=== PATIENT | female | born 1950 | race American Indian/Alaskan Native ===

== ENCOUNTER 2017-09-25 22:44 | Emergency (ER) | payer MEDICARE ==
--- NOTE | 2017-09-26 00:27 | XRay Report ---
FINAL REPORT EXAM: XR TOE(S) 2+V LT HISTORY: fell and hurt left great toe TECHNIQUE: Three views of the left great toe were obtained. FINDINGS: There is osteoporosis. There is no evidence of acute fracture involving the great toe. There is marginal spurring along the distal end of the 1st metatarsal. IMPRESSION: No evidence acute fracture involving the left great toe. Marginal spurring along the distal end of the 1st metatarsal.
--- NOTE | 2017-09-26 00:28 | XRay Report ---
FINAL REPORT EXAM: XR KNEE 1-2V LT HISTORY: s/p fall swollen and painful left knee TECHNIQUE: AP and lateral views of the left knee were submitted. FINDINGS: There is severe narrowing of the medial compartment with marginal spurring. There is moderate narrowing of the patellofemoral compartment with spurring superiorly. There is mild narrowing of the medial compartment. Joint fluid is not seen. There is no evidence of fracture. IMPRESSION: Tricompartmental arthritic changes. No evidence of fracture or joint effusion.
--- NOTE | 2017-09-26 03:15 | Emergency Department Report ---
ED Extremity Problem HPI - General Chief complaint: Extremity Problem,Nontraumatic Stated complaint: FALL Time Seen by Provider: 09/26/17 03:14 Source: patient Mode of arrival: Ambulatory Limitations: No Limitations - History of Present Illness Initial comments: Patient reports that she fell at work on Friday for 04/04/2018 after slipping on water. She says she hurt her left knee and her left great toe. Pain to left knee 7 out of 10 and aching pain to left great toe is 8 out of 10 and aching. Pain is worse with movement and better rest. She says she took Tylenol which helped with pain. Denies that she is here to get checked to make sure that she doesn't have anything broken. Denies any medical problem. She denies any known history of arthritis. Denies any numbness or tendons or extremities. Patient is ambulatory and drove herself to the hospital. MD Complaint: joint swelling, joint paint, other (left great toe pain) Onset/Timin -: days(s) Location: left, knee, toe (left great toe) History of Same: No -: No myalgia, Yes arthralgia, No fever, No associated dyspnea, No associated chest pain Radiation: none Severity scale (0 -10): 8 Quality: aching Consistency: constant Improves with: medication Worsens with: weight bearing, walking, exertion, palpation Associated Symptoms: arthralgias. denies: chest pain, shortness of breath, fever, myalgias, rash - Related Data Previous Rx's Medication Instructions Recorded Last Taken Type Ibuprofen [Motrin] 600 mg PO Q8H PRN #12 tablet 09/26/17 Unknown Rx Allergies Allergy/AdvReac Type Severity Reaction Status Date / Time No Known Allergies Allergy Unverified 09/25/17 23:35 ED Review of Systems ROS: Stated complaint: FALL Other details as noted in HPI Comment: All other systems reviewed and negative Constitutional: no symptoms reported Respiratory: no symptoms reported Cardiovascular: denies: chest pain, palpitations, dyspnea on exertion, edema, syncope, paroxysmal nocturnal dyspnea Gastrointestinal: denies: abdominal pain, nausea, vomiting, diarrhea Musculoskeletal: joint swelling, arthralgia. denies: back pain, myalgia Skin: denies: rash Neurological: denies: headache, numbness, paresthesias, confusion, abnormal gait , vertigo ED Past Medical Hx - Past Medical History Previous Medical History?: No - Surgical History Past Surgical History?: Yes Hx Cholecystectomy: Yes Additional Surgical History: C Sec X1 - Family History Family history: no significant - Social History Smoking Status: Former Smoker Substance Use Type: None - Medications Home Medications: Home Medications Medication Instructions Recorded Confirmed Last Taken Type Ibuprofen [Motrin] 600 mg PO Q8H PRN #12 tablet 09/26/17 Unknown Rx ED Physical Exam - General Limitations: No Limitations General appearance: alert, in no apparent distress - Head Head exam: Present: atraumatic, normocephalic, normal inspection, other (normal exam) - Eye Eye exam: Present: normal appearance, PERRL, EOMI Pupils: Present: normal accommodation - ENT ENT exam: Present: normal exam, normal orophraynx, mucous membranes moist - Neck Neck exam: Present: normal inspection, full ROM, other (no C-spine tenderness). Absent: tenderness - Respiratory Respiratory exam: Present: normal lung sounds bilaterally. Absent: respiratory distress, chest wall tenderness - Cardiovascular Cardiovascular Exam: Present: regular rate, normal rhythm, normal heart sounds - GI/Abdominal GI/Abdominal exam: Present: soft, normal bowel sounds. Absent: distended, tenderness, guarding, rebound, rigid - Extremities Exam Extremities exam: Present: normal inspection, full ROM (she reports pain with flexing and extending her knee but she has full range of motion.), tenderness ( tender to palpate left great toe and left knee.), normal capillary refill, joint swelling (mild swelling to left knee), other (ambulates without any difficulties.). Absent: pedal edema, calf tenderness - Expanded Lower Extremity Exam Left Hip exam: Present: normal inspection, full ROM, pelvic stability. Absent: tenderness, swelling, abrasion, laceration, ecchymosis, deformity, crepidus, dislocation, erythema, external rotation, internal rotation, shortening Upper Leg exam: Present: normal inspection, full ROM. Absent: tenderness, swelling, abrasion, laceration, ecchymosis, deformity, crepidus, dislocation, erythema Knee exam: Present: full ROM (full range of motion to both knees but patient reports pain with flexing and extending her left knee.), tenderness (anterior knee), swelling (mild swelling anterior knee), crepidus, full knee extension. Absent: normal inspection, abrasion, laceration, ecchymosis, deformity, dislocation, erythema, effusion, pain w/ pronation/supination, posterior draw sign, pain/laxity with valgus, pain/laxity with varus Lower Leg exam: Present: normal inspection, full ROM. Absent: tenderness, swelling, abrasion, laceration, ecchymosis, deformity, crepidus, dislocation, erythema, palpable cord, Stephanie's sign Ankle exam: Present: normal inspection, full ROM. Absent: tenderness, swelling , abrasion, laceration, ecchymosis, deformity, crepidus, dislocation, erythema Foot/Toe exam: Present: full ROM, tenderness (minimal tenderness to left great toe with mild swelling), swelling (left great toe). Absent: normal inspection, abrasion, laceration, ecchymosis, deformity, crepidus, dislocation, erythema, amputation, puncture wound, foreign body, calcaneal tenderness, tenderness at base of 5th metatarsal, nail avulsion, subungual hematoma Neuro vascular tendon exam: Present: no vascular compromise. Absent: pulse deficit, abnormal cap refill, motor deficit, sensory deficit, tendon deficit, extremity cold to touch, pallor, abnormal 2-point discrimination, decreased fine /light touch, foot drop, peroneal nerve deficit, significant pain with passive ROM of distal joint Gait: Positive: observed and limited by pain - Back Exam Back exam: Present: normal inspection, full ROM. Absent: tenderness, CVA tenderness (R), CVA tenderness (L), muscle spasm, paraspinal tenderness, vertebral tenderness, rash noted - Neurological Exam Neurological exam: Present: alert, oriented X3, normal gait, reflexes normal. Absent: motor sensory deficit - Psychiatric Psychiatric exam: Present: normal affect, normal mood - Skin Skin exam: Present: warm, dry, intact, normal color. Absent: rash ED Course Vital Signs 09/25/17 23:40 Temperature 99 F Pulse Rate 74 Respiratory 18 Rate Blood Pressure 168/92 [Left] O2 Sat by Pulse 97 Oximetry - Reevaluation(s) Reevaluation #1: 09/26/17 04:21 She is stable throughout ED stay and did not want any pain medication - Orthopedic Splinting/Casting Injury #1 Side: left Lower Extremity Injury Location: knee Lower Extremity Immobilizer: Alvaro wrap ED Medical Decision Making - Radiology Data Radiology results: report reviewed X-ray of left knee reveals tricompartmental arthritic changes. No evidence of fracture or joint effusion. X-ray of left great toe reveal osteoporosis. No evidence of fracture involving the left great toe. Marginal spurring along the distal end of the first metatarsal. - Medical Decision Making ED course: Patient reports fall 2 days ago while at work. She accidentally slipped on wet floor. She reported that she hit her left knee and injured her left great toe. Physical findings are mild swelling to left knee with minimal pain with active range of motion and minimal swelling to left great toe but full range of motion. X-ray findings no acute fracture or dislocation to left great toe or left knee. Please refer to radiology section for details on x-ray report. Patient did not want any pain medication in emergency room. See procedure note for splinting of the left knee. Patient discharged home to follow up with orthopedic doctor and 3 days. Given prescription for Motrin to take as needed for pain. Critical care attestation.: If time is entered above; I have spent that time in minutes in the direct care of this critically ill patient, excluding procedure time. ED Disposition Clinical Impression: Tricompartment osteoarthritis of left knee, Bone spur of toe of left foot, Arthralgia of multiple sites Accidental fall Qualifiers: Encounter type: initial encounter Qualified Code(s): W19.XXXA - Unspecified fall, initial encounter Left knee injury Qualifiers: Encounter type: initial encounter Qualified Code(s): S89.92XA - Unspecified injury of left lower leg, initial encounter Contusion of left knee Qualifiers: Encounter type: initial encounter Qualified Code(s): S80.02XA - Contusion of left knee, initial encounter Disposition: DC- TO HOME OR SELFCARE Is pt being admited?: No Does the pt Need Aspirin: No Condition: Stable Instructions: Knee Pain (ED), Knee Exercises (GEN), Arthralgia (ED), Osteoarthritis (ED), Contusion in Adults (ED), RICE Therapy (ED), Fall Prevention for Older Adults (ED) Additional Instructions: Please take Motrin as prescribed and this will help with knee and toe pain Rest for 3 days See discharge instruction on a rice therapy Follow-up with orthopedic doctor in 3 days Prescriptions: Ibuprofen [Motrin] 600 mg PO Q8H PRN #12 tablet PRN Reason: Pain Referrals: PRIMARY CARE, [Primary Care Provider] - 3-5 Days Forms: Work/School Release Form(ED)
[2017-09-26 04:42] VITALS: BP 158/90
== END 2017-09-26 04:42 | disposition home or self-care (01) ==
LOC: ED 22:44
DX: S80.02XA Contusion of left knee, initial encounter (principal); M17.12 Unilateral primary osteoarthritis, left knee; M77.9 Enthesopathy, unspecified; M25.50 Pain in unspecified joint; W18.30XA Fall on same level, unspecified, initial encounter; Y93.89 Activity, other specified; Y92.89 Other specified places as the place of occurrence of the external cause; Y99.8 Other external cause status

== ENCOUNTER 2019-07-12 19:05 | Emergency (ER) | payer MEDICARE ==
[2019-07-12 20:17] VITALS: BP 145/76
--- NOTE | 2019-07-12 20:35 | Emergency Department Report ---
ED Neck Pain/Injury HPI - General Chief Complaint: Neck Pain/Injury Stated Complaint: CAN NOT TURN HEAD Time Seen by Provider: 07/12/19 20:31 Mode of arrival: Ambulatory Limitations: No Limitations - History of Present Illness Initial Comments: This is a 69-year-old female nontoxic, well nourished in appearance, no acute signs of distress presents to the ED with c/o of upper back pain. Patient stated that the past 2 days she was moving and developed this pain. Patient denies any trauma. Denies any bladder or bowel instability. Patient denies any urinary symptoms. Denies any fever, chills, nausea, vomiting, headache, stiff neck, chest pain or shortness of breath. Patient denies any numbness or tingling. Denies any allergies. MD Complaint: upper back pain -: days(s) Severity: mild Severity scale (0 -10): 3 Quality: aching Consistency: intermittent Improves With: immobilization Worsens With: movement of extremity, movement of neck Associated Symptoms: none. denies: headache, fever, numbness, tingling, weakness, vertigo, difficulty walking, swollen glands, difficulty swallowing, nausea, vomiting Treatments Prior to Arrival: none - Related Data Previous Rx's Medication Instructions Recorded Last Taken Type Ibuprofen [Motrin] 600 mg PO Q8H PRN #12 tablet 09/26/17 Unknown Rx Cyclobenzaprine HCl [Flexeril 5 MG 5 mg PO QHS PRN #10 tab 07/12/19 Unknown Rx TAB] Naproxen 500 mg PO Q12H PRN #20 tablet 07/12/19 Unknown Rx Allergies Allergy/AdvReac Type Severity Reaction Status Date / Time No Known Allergies Allergy Verified 07/12/19 19:17 ED Review of Systems ROS: Stated complaint: CAN NOT TURN HEAD Other details as noted in HPI Constitutional: denies: chills, fever Eyes: denies: eye pain, eye discharge, vision change ENT: denies: ear pain, throat pain Respiratory: denies: cough, shortness of breath, wheezing Cardiovascular: denies: chest pain, palpitations Endocrine: no symptoms reported Gastrointestinal: denies: abdominal pain, nausea, diarrhea Genitourinary: denies: urgency, dysuria, discharge Musculoskeletal: denies: back pain, joint swelling, arthralgia Skin: denies: rash, lesions Neurological: denies: headache, weakness, paresthesias Psychiatric: denies: anxiety, depression Hematological/Lymphatic: denies: easy bleeding, easy bruising ED Past Medical Hx - Surgical History Hx Cholecystectomy: Yes Additional Surgical History: C Sec X1 - Social History Smoking Status: Former Smoker Substance Use Type: None - Medications Home Medications: Home Medications Medication Instructions Recorded Confirmed Last Taken Type Ibuprofen [Motrin] 600 mg PO Q8H PRN #12 tablet 09/26/17 Unknown Rx Cyclobenzaprine HCl [Flexeril 5 MG 5 mg PO QHS PRN #10 tab 07/12/19 Unknown Rx TAB] Naproxen 500 mg PO Q12H PRN #20 tablet 07/12/19 Unknown Rx ED Physical Exam - General Limitations: No Limitations General appearance: alert, in no apparent distress - Head Head exam: Present: atraumatic, normocephalic - Neck Neck exam: Present: normal inspection, full ROM. Absent: tenderness, meningismus, lymphadenopathy - Extremities Exam Extremities exam: Present: normal inspection, full ROM, normal capillary refill. Absent: tenderness, joint swelling - Back Exam Back exam: Present: normal inspection, full ROM, paraspinal tenderness (cervical paraspinal). Absent: tenderness, CVA tenderness (R), CVA tenderness (L), muscle spasm, vertebral tenderness, rash noted - Neurological Exam Neurological exam: Present: alert, oriented X3, normal gait - Psychiatric Psychiatric exam: Present: normal affect, normal mood - Skin Skin exam: Present: warm, dry, intact, normal color. Absent: rash ED Course Vital Signs 07/12/19 19:30 Temperature 98.7 F Pulse Rate 75 Respiratory 18 Rate Blood Pressure 145/76 O2 Sat by Pulse 96 Oximetry - Reevaluation(s) Reevaluation #1: 07/12/19 20:33 Patient is speaking in full sentences with no signs of distress noted. ED Medical Decision Making - Medical Decision Making This is a 69-year-old female that presents with upper back strain. Patient is stable was examined by me. There is no spinal tenderness. There is no cauda equina syndrome during examination. No bladder or bowel instability. Patient is discharged with muscle relaxant and NSAID. Patient was instructed not to operate any machinery while taking muscle relaxant as they cause her drowsiness. Patient was referred to Follow-up with a primary care doctor in 3-5 days or if symptoms worsen and continue return to emergency room as soon as possible. At time of discharge, the patient does not seem toxic or ill in appearance. No acute signs of distress noted. Patient agrees to discharge treatment plan of care. No further questions noted by the patient. Critical care attestation.: If time is entered above; I have spent that time in minutes in the direct care of this critically ill patient, excluding procedure time. ED Disposition Clinical Impression: Cervical muscle strain Qualifiers: Encounter type: initial encounter Qualified Code(s): S16.1XXA - Strain of muscle, fascia and tendon at neck level, initial encounter Disposition: TO HOME OR SELFCARE Is pt being admited?: No Does the pt Need Aspirin: No Condition: Stable Instructions: Muscle Strain (ED) Additional Instructions: Follow-up with a primary care doctor in 3-5 days or if symptoms worsen and continue return to emergency room as soon as possible. Prescriptions: Cyclobenzaprine HCl [Flexeril 5 MG TAB] 5 mg PO QHS PRN #10 tab PRN Reason: Muscle Spasm Naproxen 500 mg PO Q12H PRN #20 tablet PRN Reason: Pain, Moderate (4-6) Referrals: PRIMARY MD CHAS [Referring] - 3-5 Days JOSIE THOMAS MD [Staff Physician] - 3-5 Days [facility] [Outside] - 3-5 Days
== END 2019-07-12 20:45 | disposition home or self-care (01) ==
LOC: ED 19:05
DX: S16.1XXA Strain of muscle, fascia and tendon at neck level, initial encounter (principal); Z90.49 Acquired absence of other specified parts of digestive tract; Z98.890 Other specified postprocedural states; Z79.899 Other long term (current) drug therapy; X58.XXXA Exposure to other specified factors, initial encounter; Y93.89 Activity, other specified; Y92.89 Other specified places as the place of occurrence of the external cause; Y99.8 Other external cause status
CPT/HCPCS: 99282